=== PATIENT | male | born 1985 | race Caucasian/White ===

== ENCOUNTER 2017-11-10 11:00 | Emergency (ER) | payer SELFPAY ==
[~2017-11-10] VITALS: Ht 177.8 cm; Wt 98.0 kg
[2017-11-10] MEDS ORDERED: KETOROLAC 30MG/ML VIAL IV STA (11:19)
[2017-11-10] MEDS ORDERED: SODIUM CHLORIDE 0.9% 1,000 ML IV ONE ×2 (11:19→15:45)
[2017-11-10] MEDS ORDERED: ACETAMINOPHEN 325MG TABLET PO STA (11:19)
[2017-11-10 12:11] LABS: CARBON DIOXIDE 27 mEq/L (21-32); CHLORIDE 102 mEq/L (98-107)
[2017-11-10 13:17] LABS: HEMOGLOBIN. 14.5 g/dL (14.0-18.0); MEAN CORPUSCULAR HEMOGLOBIN 31.4 pg (28.0-32.0); MEAN PLATELET VOLUME 8.7 fl (7.4-10.4); PLATELET 156 x1000/uL (130-400); RED CELL DISTRIBUTION WIDTH 12.4 % (11.6-14.6)
[2017-11-10 13:42] LABS: PLATELET ESTIMATE NORMAL
[2017-11-10 15:45] LABS: CLARITY URINE CLEAR (CLEAR); COLOR URINE YELLOW (YELLOW); KETONES URINE NEGATIVE (NEGATIVE); LEUKOCYTE ESTERASE URINE NEGATIVE (NEGATIVE); NITRITE URINE NEGATIVE (NEGATIVE); OCCULT BLOOD URINE NEGATIVE (NEGATIVE); PROTEIN URINE NEGATIVE (NEGATIVE); SPECIFIC GRAVITY URINE 1.008 (1.005-1.030); UROBILINOGEN URINE 0.2 E.U./dL (0.2-1.0)
[2017-11-10] MEDS ORDERED: ACETAMINOPHEN WITH CODEINE 120-12MG/5ML UDC PO ONE (15:45)
[2017-11-10 16:17] VITALS: BP 141/80
== END 2017-11-10 17:06 | disposition home or self-care (01) ==
LOC: ER 11:40
DX: R50.9 Fever, unspecified (principal); M79.662 Pain in left lower leg; M79.89 Other specified soft tissue disorders
CPT/HCPCS: 36415; 71010; 80053; 81003; 85025; 87804; 93971; 96361; 96374; 99291; J1885; J7030; Z7610

== ENCOUNTER 2017-11-12 12:01 | Emergency (ER) | payer SELFPAY ==
[~2017-11-12] VITALS: Ht 177.8 cm; Wt 95.0 kg
[2017-11-12] MEDS ORDERED: KETOROLAC 30MG/ML VIAL IV ONE (15:00)
[2017-11-12] MEDS ORDERED: VANCOMYCIN 1 G PREMIX 200 ML IV SCH (15:00)
[2017-11-12] MEDS ORDERED: SODIUM CHLORIDE 0.9% 1,000 ML IV ONE (15:00)
[2017-11-12] MEDS ORDERED: PIPERACILLIN/TAZOBACTAM 3.375GM/50ML PREMIX IV ONE (15:00)
[2017-11-12 15:48] LABS: BASOPHILS % 0.3 % (0.0-2.0); EOSINOPHILS % 1.2 % (0.0-5.0); HEMATOCRIT. 39.1 % (42.0-52.0); HEMOGLOBIN. 13.3 g/dL (14.0-18.0); LYMPHOCYTES % 25.4 % (20.0-50.0); MEAN CORPUSCULAR HEMOGLOBIN 30.2 pg (28.0-32.0); MEAN CORPUSCULAR VOLUME 88.8 fL (80.0-94.0); MEAN PLATELET VOLUME 8.9 fl (7.4-10.4); MONOCYTES % 12.1 % (2.0-8.0); PLATELET 134 x1000/uL (130-400); RED BLOOD CELL COUNT 4.41 mill/uL (4.7-6.1); RED CELL DISTRIBUTION WIDTH 12.6 % (11.6-14.6)
[2017-11-12 15:53] LABS: CHLORIDE 107 mEq/L (98-107)
[2017-11-12 16:00] LABS: CARBON DIOXIDE 28 mEq/L (21-32)
[2017-11-12] MEDS ORDERED: PIPERACILLIN/TAZ 3.375G PREMIX 50 ML IV ONE (16:30)
[2017-11-12 17:51] VITALS: BP 151/88
== END 2017-11-12 18:04 | disposition home or self-care (01) ==
LOC: ER 13:09
DX: L03.116 Cellulitis of left lower limb (principal)
CPT/HCPCS: 36415; 80053; 85025; 85651; 87040; 93971; 96365; 96367; 96375; 99285; J1885; J2543; J3370; J7030; Z7610